=== PATIENT | female | born 1990 | race American Indian/Alaskan Native ===

== ENCOUNTER 2017-10-12 18:29 | Emergency (ER) | payer MEDICAID ==
[2017-10-12] MEDS ORDERED: TYLENOL ONE (18:37)
[2017-10-12] MEDS ORDERED: TYLENOL PO ONE (18:45)
[2017-10-12] MEDS ORDERED: NACL 0.9% 1000 ML 1,000 ML IV ONE (20:41)
[2017-10-12 21:01] LABS: Hematocrit 29.6 % (30.3-42.9); Hemoglobin 9.6 gm/dl (10.1-14.3)
[2017-10-12 21:02] LABS: Mean Corpuscular HGB Conc 32 % (30-34); Mean Corpuscular Hemoglobin 26 pg (28-32); Mean Corpuscular Volume 80 fl (79-97); Platelet Count 322 K/mm3 (140-440); Red Cell Distribution Width 17.8 % (13.2-15.2)
[2017-10-12 21:14] LABS: Alanine Aminotransferase 5 units/L (7-56); Albumin 4.4 g/dL (3.9-5); BUN/Creatinine Ratio 13; Blood Urea Nitrogen 10 mg/dL (7-17); Calcium 8.9 mg/dL (8.4-10.2); Hemolysis Index 19; Lipase 30 units/L (13-60)
[2017-10-12 21:37] VITALS: BP 98/64
[2017-10-12 21:43] LABS: Basophils % (Manual) 0 % (0.0-1.8); Eosinophils % (Manual) 0 % (0.0-4.3); Total Cells Counted 100
[2017-10-12 21:44] LABS: Anisocytosis 1+; Poikilocytosis Few
[2017-10-12] MEDS ORDERED: LEVAQUIN 500MG/100ML 500 MG/100 ML BAG IV ONE (21:47)
[2017-10-12] MEDS ORDERED: SUBLIMAZE IV ONE (22:10)
--- NOTE | 2017-10-12 22:53 | Emergency Department Report ---
HPI - General Chief Complaint: Abdominal Pain Time Seen by Provider: 10/12/17 21:30 - HPI HPI: The patient is a 27-year-old female presents for evaluation of abdominal pain. The patient reports suprapubic abdominal pain for the past 4 days, crampy in quality, moderate severity, radiating to the bilateral flanks. She also reports associated dysuria. The patient denies fever, chills, night sweats, diarrhea, blood in the stool, dark tarry stool, genital discharge, inability to pass flatus. ED Past Medical Hx - Past Medical History Previous Medical History?: No - Surgical History Additional Surgical History: C/S - Social History Smoking Status: Never Smoker Substance Use Type: None - Medications Home Medications: Home Medications Medication Instructions Recorded Confirmed Last Taken Type HYDROcodone/APAP 7.5-325 [[place] 1 each PO Q8HR PRN #15 tablet 10/13/17 Unknown Rx 7.5-325 mg TAB] Ibuprofen [Motrin] 600 mg PO Q8H PRN #30 tablet 10/13/17 Unknown Rx Levofloxacin [Levaquin] 750 mg PO QDAY #7 tablet 10/13/17 Unknown Rx ED Review of Systems ROS: Stated complaint: PAIN/NAUSEA VOMITING Other details as noted in HPI Constitutional: denies: fever ENT: denies: throat or neck pain Respiratory: denies: cough, shortness of breath Cardiovascular: denies: chest pain Endocrine: denies unexplained weight loss or gain Gastrointestinal: reports abdominal pain, nausea Genitourinary: reports flank pain, dysuria Musculoskeletal: denies: leg swelling Skin: denies: rash Neurological: denies: headache Hematological/Lymphatic: denies: easy bleeding or easy bruising Psych: denies sadness or hopelessness Physical Exam - Physical Exam Vital Signs: Vital Signs 10/12/17 10/12/17 10/12/17 18:43 21:36 21:45 Temperature 101.9 F H 98.4 F Pulse Rate 112 H 80 Respiratory 20 14 14 Rate Blood Pressure 107/62 Blood Pressure 98/64 [Left] O2 Sat by Pulse 97 100 100 Oximetry Physical Exam: General: well-nourished, well-developed, no acute distress Head: Normocephalic, atraumatic Eyes: normal sclera ENT: Mucous membranes are pale and dry Neck: No neck stiffness, no cervical adenopathy Respiratory: Breath sounds equal bilaterally, no wheezing, rales, or rhonchi Cardio: S1 and S2 present, no murmurs, rubs, gallops, capillary refill is delayed Abdomen: Normoactive bowel sounds, soft abdomen, suprapubic tenderness to palpation present, no rigidity, no guarding or rebound tenderness Chest WALL/Back: No tenderness to palpation of the chest wall, positive bilateral CVA tenderness with percussion is present Musc: No pitting edema Skin: No rash Neuro: no facial drooping, normal speech Psych: Normal affect ED Course Vital Signs 10/12/17 10/12/17 10/12/17 18:43 21:36 21:45 Temperature 101.9 F H 98.4 F Pulse Rate 112 H 80 Respiratory 20 14 14 Rate Blood Pressure 107/62 Blood Pressure 98/64 [Left] O2 Sat by Pulse 97 100 100 Oximetry ED Medical Decision Making - Lab Data Result diagrams: 10/12/17 20:48 10/12/17 20:48 - Medical Decision Making The patient was seen and examined by myself. The patient is placed on a cardiac cath lab manager and continuous pulse ox. On initial evaluation, the patient was found to be in no distress. Evaluation orders are placed. IV access is established and the patient is given Tylenol for her fever, 1 L normal saline fluid bolus and Zofran for nausea, and IV analgesic for pain. Lab results revealed significantly elevated urine WBC with positive leukocyte esterase, consistent with urinary tract infection, and otherwise labs were not concerning including normal renal function and negative test. The patient is given IV Levaquin for treatment of probable pyelonephritis, as she was found to have UTI with fever, and bilateral flank tenderness to percussion. The patient was reevaluated and reported that her symptoms were markedly improved. The patient is stable for discharge with outpatient follow-up. The patient is given follow-up and return instructions. The patient expressed understanding and agreed with the plan. The patient is discharged in stable condition with a prescription for high-dose Levaquin for treatment of pyelonephritis. Critical care attestation.: If time is entered above; I have spent that time in minutes in the direct care of this critically ill patient, excluding procedure time. ED Disposition Clinical Impression: Dehydration, Pyelonephritis, Acute upper urinary tract infection Disposition: TO HOME OR SELFCARE Is pt being admited?: No Does the pt Need Aspirin: No Condition: Stable Instructions: Abdominal Pain (ED), Urinary Tract Infection in Women (ED) Referrals: [facility] [Outside] - 3-5 Days Time of Disposition: 23:02
[2017-10-12 22:54] LABS: Bilirubin,Urine NEG (Negative); Blood,Urine NEG (Negative); Color,Urine Amber (Yellow); Mucus,Urine 3+ /HPF
[2017-10-12 23:01] LABS: HCG Qualitative,Urine Negative (Negative)
== END 2017-10-13 00:46 | disposition home or self-care (01) ==
LOC: ED 18:29
DX: E86.0 Dehydration (principal); N39.0 Urinary tract infection, site not specified; N12 Tubulo-interstitial nephritis, not specified as acute or chronic
CPT/HCPCS: 36415; 80053; 81001; 81025; 83690; 85007; 85025; 96361; 96374; 99284; J1956; J3010; J7030

== ENCOUNTER 2017-12-16 19:18 | Emergency (ER) | payer MEDICAID ==
[2017-12-16 19:45] VITALS: BP 108/48
== END 2017-12-17 01:19 | disposition left against medical advice (07) ==
LOC: ED 19:18
DX: Z53.21 Procedure and treatment not carried out due to patient leaving prior to being seen by health care provider (principal)

== ENCOUNTER 2021-02-26 09:36 | Emergency (ER) | payer MEDICAID | END 2021-02-26 13:38 | disposition left against medical advice (07) | LOC: ED 09:36 | DX: N93.9 Abnormal uterine and vaginal bleeding, unspecified (principal); Z53.21 Procedure and treatment not carried out due to patient leaving prior to being seen by health care provider ==